=== PATIENT | female | born 1995 | race Hispanic/Latino ===

== ENCOUNTER 2021-06-04 09:52 | Emergency (ER) | payer OTHER, SELFPAY ==
[2021-06-04] MEDS ORDERED: Acetaminophen 500 MG TAB ONE (14:55)
[2021-06-05 12:06] LABS: SARS-CoV-2 PCR by NAA DETECTED (NotDetected)
== END 2021-06-04 16:07 | disposition home or self-care (01) ==
LOC: CSHERS 09:52
DX: U07.1 COVID-19 (principal); F17.210 Nicotine dependence, cigarettes, uncomplicated
CPT/HCPCS: 71045; 87804; U0003; U0005

== ENCOUNTER 2022-08-15 10:36 | Emergency (ER) | payer OTHER, SELFPAY ==
[2022-08-15 12:08] LABS: SARS-CoV-2 NAA Rapid Test Not Detected (NotDetected)
[2022-08-15] MEDS ORDERED: Ondansetron ODT 4 MG TAB ONE (12:12)
[2022-08-15] MEDS ORDERED: Dexamethasone 10 MG/ML VIAL ONE (12:30)
[2022-08-15] MEDS ORDERED: Bicillin LA 1.2 MILLION UNITS/2 ML SYRINGE IM SCH (13:15)
== END 2022-08-15 13:22 | disposition home or self-care (01) ==
LOC: CSHERS 10:36
DX: J02.0 Streptococcal pharyngitis (principal); R11.2 Nausea with vomiting, unspecified; Z20.822 Contact with and (suspected) exposure to COVID-19; F17.210 Nicotine dependence, cigarettes, uncomplicated
CPT/HCPCS: 71045; 87430; 96372; J0561; J1100; Q0162

== ENCOUNTER 2022-12-13 18:57 | Emergency (ER) | payer SELFPAY ==
[2022-12-13 19:48] LABS: #Eosinphils 0.1 10x3/uL (0.0-0.5); #Monocytes 0.7 10x3/uL (0.0-1.1); #Neutrophils 7.8 10x3/uL (1.5-8.4); %Basophils 0.2 % (0.0-2.0); %Eosinophils 0.8 % (0.0-6.0); %Lymphocytes 24.8 % (18.0-47.0); %Monocytes 6.4 % (0.0-10.0); %Neutrophils 67.5 % (40.0-75.0); Hemoglobin 13.9 g/dL (12.0-15.5); Mean Corpuscular HGB CONC 34.3 g/dL (32.0-36.0); Mean Corpuscular Hemoglobin 29.6 pg (27.0-33.0); Mean Corpuscular Volume 86.2 fl (81.6-98.3); Mean Platelet Volume 12.3 fl (7.4-10.4); Platelet Count 222 10x3/uL (150-450); RBC Distribution Width 13.2 % (11.5-14.5); White Blood Cell (WBC) Count 11.5 10x3/uL (3.5-10.5)
[2022-12-13 20:04] LABS: ALT (SGPT) 17 U/L (8-55); AST (SGOT) 13 U/L (5-34); Albumin 3.8 g/dL (3.5-5.0); Alkaline Phosphatase 75 U/L (40-110); Anion Gap 16 mmol/L (10-20); BUN (Urea Nitrogen) 5 mg/dL (7.0-18.7); Bilirubin, Total 0.3 mg/dL (0.2-1.2); Calc. Creatinine Clearance 0 mL/min (70-130); Calcium 9.6 mg/dL (7.8-10.44); Carbon Dioxide 23 mmol/L (22-29); Chloride 103 mmol/L (98-107); Estimated GFR 123; Globulin 3.6 g/dL (2.4-3.5); Glucose 102 mg/dL (70-105); Potassium 3.5 mmol/L (3.5-5.1); Protein, Total 7.4 g/dL (6.0-8.3); Sodium 138 mmol/L (136-145)
[2022-12-13 22:52] LABS: Bilirubin Neg (Negative); Blood, Urine Negative (Negative); Clarity Slightly Cloudy (Clear); Glucose, Urine (Dipstick) Normal (Negative); Ketone, Urine Negative (Negative); Leukocyte Negative (Negative); Nitrite Negative (Negative); Protein, Urine (Dipstick) Negative (Neg-Trace); Urobilinogen Normal mg/dL (Less than 2)
[2022-12-13 23:00] LABS: Bacteria/HPF 2+ HPF (None Seen); CAUTI Indications for Culture Dysuria,urgency,freq; RBC/HPF 0-3 HPF (0-3); Squamous Epithelial 0-3 HPF (0-3); WBC/HPF 0-3 HPF (0-3)
[2022-12-13 23:01] LABS: Urine Culture Reflex No No
== END 2022-12-13 23:10 | disposition home or self-care (01) ==
LOC: CSHERS 18:57
DX: O20.0 Threatened abortion (principal); F17.210 Nicotine dependence, cigarettes, uncomplicated; Z3A.15 15 weeks gestation of pregnancy
CPT/HCPCS: 36415; 76815; 80053; 81001; 84702; 85025; 86900; 86901

== ENCOUNTER 2023-02-20 14:18 | Day surgery (SDC) | payer MEDICAID ==
[2023-02-20 15:24] VITALS: BMI 40.2
[2023-02-20] MEDS ORDERED: Ondansetron PF 4 MG/2 ML Vial ONE (15:45)
[2023-02-20] MEDS ORDERED: Dextrose 5%-Lactated Ringers 1,000 ML IV SCH (15:45)
[2023-02-20] MEDS ORDERED: Ondansetron PF 4 MG/2 ML Vial IVP PRN (15:45)
[2023-02-20] MEDS ORDERED: hydrALAZINE 20 MG/ML VIAL SLOW IVP PRN (15:46)
[2023-02-20] MEDS ORDERED: Acetaminophen 500 MG TAB PO SCH (16:15)
[2023-02-20] MEDS ORDERED: Promethazine HCl 25 MG in Sodium Chloride 0.9% 50 ML IVPB PRN (16:58)
[2023-02-20 18:31] LABS: Bilirubin Neg (Negative); Blood, Urine Negative (Negative); Clarity Clear (Clear); Glucose, Urine (Dipstick) Normal (Negative); Ketone, Urine 50 mg/dL (Negative); Leukocyte Negative (Negative); Nitrite Negative (Negative); Protein, Urine (Dipstick) 15 mg/dl (Neg-Trace); Urobilinogen Normal mg/dL (Less than 2)
[2023-02-20 18:58] LABS: Bacteria/HPF Rare-Few HPF (None Seen); CAUTI Indications for Culture Dysuria,urgency,freq; RBC/HPF 0-3 HPF (0-3); Squamous Epithelial 0-3 HPF (0-3); Urine Culture Reflex No No; WBC/HPF 0-3 HPF (0-3)
== END 2023-02-20 19:45 | disposition home or self-care (01) ==
LOC: CSHLD/OP 14:18
PROVIDERS: ATTEND Advanced Practice Midwife
DX: O21.2 Late vomiting of pregnancy (principal); O10.912 Unspecified pre-existing hypertension complicating pregnancy, second trimester; Z90.49 Acquired absence of other specified parts of digestive tract; Z79.899 Other long term (current) drug therapy; Z3A.24 24 weeks gestation of pregnancy
CPT/HCPCS: 81001; 96360; 96366; 96375; 99284; J2405; J2550

== ENCOUNTER 2023-04-20 13:02 | Day surgery (SDC) | payer OTHER ==
[2023-04-20 13:38] VITALS: BMI 42.3
[2023-04-20 14:28] LABS: Creatinine, Urine 355.61 mg/dL (47-110)
[2023-04-20] MEDS ORDERED: Calcium Gluc 4.6 MEQ/10 ML (100 MG/ML) SLOW IVP PRN (14:34)
[2023-04-20] MEDS ORDERED: Lorazepam 2 MG/ML VIAL SLOW IVP PRN (14:34)
[2023-04-20] MEDS ORDERED: Ondansetron ODT 4 MG TAB PO PRN (14:57)
[2023-04-20] MEDS ORDERED: Acetaminophen 500 MG TAB PO SCH (15:00)
[2023-04-20 15:37] LABS: #Eosinphils 0.1 10x3/uL (0.0-0.5); #Monocytes 0.7 10x3/uL (0.0-1.1); %Basophils 0.2 % (0.0-2.0); %Eosinophils 0.7 % (0.0-6.0); %Lymphocytes 21.4 % (18.0-47.0); %Neutrophils 69.2 % (40.0-75.0); Hematocrit 34.5 % (34.9-44.5); Hemoglobin 11.7 g/dL (12.0-15.5); Mean Corpuscular HGB CONC 33.9 g/dL (32.0-36.0); Mean Corpuscular Hemoglobin 29.8 pg (27.0-33.0); Mean Platelet Volume 13.2 fl (7.4-10.4); Platelet Count 172 10x3/uL (150-450); RBC Distribution Width 14.6 % (11.5-14.5); Red Blood Cell (RBC) Count 3.92 10x6/uL (3.90-5.03); White Blood Cell (WBC) Count 8.7 10x3/uL (3.5-10.5)
[2023-04-20 15:42] LABS: ALT (SGPT) 12 U/L (8-55); AST (SGOT) 14 U/L (5-34); Albumin 2.9 g/dL (3.5-5.0); Alkaline Phosphatase 105 U/L (40-110); Anion Gap 12 mmol/L (10-20); BUN (Urea Nitrogen) 4 mg/dL (7.0-18.7); Bilirubin, Total 0.4 mg/dL (0.2-1.2); Calc. Creatinine Clearance 267 mL/min (70-130); Calcium 8.4 mg/dL (7.8-10.44); Carbon Dioxide 22 mmol/L (22-29); Chloride 110 mmol/L (98-107); Estimated GFR 125; Glucose 70 mg/dL (70-105); Potassium 3.5 mmol/L (3.5-5.1); Protein, Total 5.9 g/dL (6.0-8.3); Sodium 140 mmol/L (136-145)
[2023-04-20] MEDS ORDERED: Labetalol HCl 100 MG TAB PO SCH (17:45)
== END 2023-04-20 21:29 | disposition home or self-care (01) ==
LOC: CSHLD/OP 13:02
PROVIDERS: ATTEND Family Medicine
DX: O11.3 Pre-existing hypertension with pre-eclampsia, third trimester (principal); O10.913 Unspecified pre-existing hypertension complicating pregnancy, third trimester; Z79.899 Other long term (current) drug therapy; Z90.49 Acquired absence of other specified parts of digestive tract; Z3A.35 35 weeks gestation of pregnancy
CPT/HCPCS: 36415; 76816; 76819; 80053; 82570; 84156; 85025; Q0162

== ENCOUNTER 2023-04-28 12:25 | Day surgery (SDC) | payer OTHER ==
[2023-04-28] MEDS ORDERED: hydrALAZINE 20 MG/ML VIAL SLOW IVP PRN (12:33)
[2023-04-28 12:58] VITALS: BMI 42.3
[2023-04-28 13:44] LABS: #Eosinphils 0.1 10x3/uL (0.0-0.5); #Monocytes 0.5 10x3/uL (0.0-1.1); #Neutrophils 6.3 10x3/uL (1.5-8.4); %Basophils 0.2 % (0.0-2.0); %Eosinophils 0.7 % (0.0-6.0); %Monocytes 5.6 % (0.0-10.0); %Neutrophils 72.2 % (40.0-75.0); Hemoglobin 12.5 g/dL (12.0-15.5); Mean Corpuscular HGB CONC 33.8 g/dL (32.0-36.0); Mean Corpuscular Hemoglobin 29.5 pg (27.0-33.0); Mean Corpuscular Volume 87.3 fl (81.6-98.3); Mean Platelet Volume 13.5 fl (7.4-10.4); Platelet Count 170 10x3/uL (150-450); RBC Distribution Width 14.7 % (11.5-14.5); Red Blood Cell (RBC) Count 4.24 10x6/uL (3.90-5.03); White Blood Cell (WBC) Count 8.8 10x3/uL (3.5-10.5)
[2023-04-28 14:02] LABS: Creatinine, Urine 210.7 mg/dL (47-110)
[2023-04-28 14:02] LABS: ALT (SGPT) 14 U/L (8-55); AST (SGOT) 16 U/L (5-34); Albumin 3.1 g/dL (3.5-5.0); Alkaline Phosphatase 113 U/L (40-110); Anion Gap 14 mmol/L (10-20); BUN (Urea Nitrogen) 5 mg/dL (7.0-18.7); Bilirubin, Total 0.5 mg/dL (0.2-1.2); Calc. Creatinine Clearance 243 mL/min (70-130); Calcium 8.5 mg/dL (7.8-10.44); Carbon Dioxide 20 mmol/L (22-29); Chloride 109 mmol/L (98-107); Estimated GFR 122; Globulin 3.1 g/dL (2.4-3.5); Glucose 105 mg/dL (70-105); Potassium 3.7 mmol/L (3.5-5.1); Protein, Total 6.2 g/dL (6.0-8.3); Sodium 139 mmol/L (136-145)
== END 2023-04-28 16:00 | disposition home health service (06) ==
LOC: CSHLD/OP 12:25
PROVIDERS: ATTEND Obstetrics & Gynecology
DX: O16.3 Unspecified maternal hypertension, third trimester (principal); Z3A.33 33 weeks gestation of pregnancy
CPT/HCPCS: 80053; 82570; 84156; 85025; 99282

== ENCOUNTER 2023-05-02 21:50 | Day surgery (SDC) | payer OTHER ==
[2023-05-02 22:11] VITALS: BMI 34.0
[2023-05-02] MEDS ORDERED: Ondansetron PF 4 MG/2 ML Vial IVP PRN (22:34)
[2023-05-02] MEDS ORDERED: Lactated Ringer's 1,000 ML IV SCH (22:45)
[2023-05-02] MEDS ORDERED: Ondansetron PF 4 MG/2 ML Vial IVP SCH (22:45)
[2023-05-02] MEDS ORDERED: Labetalol HCl 200 MG TAB PO SCH (22:45)
[2023-05-02] MEDS ORDERED: Acetaminophen 500 MG TAB PO SCH (22:45)
[2023-05-03 00:28] LABS: SARS-CoV-2 NAA Rapid Test Not Detected (NotDetected)
[2023-05-03] MEDS ORDERED: Labetalol HCl 200 MG TAB PO SCH (09:00)
== END 2023-05-03 01:05 | disposition home or self-care (01) ==
LOC: CSHLD/OP 21:50
PROVIDERS: ATTEND Family Medicine
DX: O21.2 Late vomiting of pregnancy (principal); O14.93 Unspecified pre-eclampsia, third trimester; O16.3 Unspecified maternal hypertension, third trimester; O99.343 Other mental disorders complicating pregnancy, third trimester; F41.9 Anxiety disorder, unspecified; Z90.49 Acquired absence of other specified parts of digestive tract; Z79.899 Other long term (current) drug therapy; Z20.822 Contact with and (suspected) exposure to COVID-19; Z3A.34 34 weeks gestation of pregnancy
CPT/HCPCS: 96360; 96361; 96374; 96375; 99284; J2405

== ENCOUNTER 2023-07-06 20:08 | Emergency (ER) | payer OTHER ==
[2023-07-06] MEDS ORDERED: Ibuprofen 200 MG TAB ONE (21:00)
[2023-07-06 21:30] LABS: SARS-CoV-2 NAA Rapid Test DETECTED (NotDetected)
== END 2023-07-06 22:00 | disposition home or self-care (01) ==
LOC: CSHERS 20:08
DX: U07.1 COVID-19 (principal); I10 Essential (primary) hypertension; F17.210 Nicotine dependence, cigarettes, uncomplicated; Z79.899 Other long term (current) drug therapy
CPT/HCPCS: 99284